=== PATIENT | female | born 1970 | race Caucasian/White ===

== ENCOUNTER → 2021-07-09 17:51 | Outpatient (CLI) | payer OTHER, SELFPAY ==
--- NOTE | 2021-07-09 18:00 | DI.MRI.S_ITS ---
PROCEDURE: MR HIP RT WO CON INDICATIONS: Stress Fracture TECHNIQUE: Noncontrast coronal T1 spin echo and STIR through the bony pelvis. Coronal and axial T2 fast spin echo with fat saturation, sagittal T1 spin echo, and oblique axial T2 fast spin echo with fat saturation through the hip. COMPARISON: None. FINDINGS: Image quality: Excellent. Bones and joints: There is a nondisplaced subcapital fracture of the right femoral neck. It extends to the cortex anteriorly, posteriorly, medially, and laterally. There is extensive bony edema related to the fracture. The femoral head appears intact. No dislocation. No other fractures or dislocations seen. Soft tissues: Unremarkable IMPRESSION: Nondisplaced subcapital fracture of the right femoral neck. Extensive associated bone marrow edema. Comment: This study was obtained after hours. I spoke to the patient directly, and suggested either nonweightbearing until discussing options with the patient's referring orthopedic surgeon versus potential hospital admission. The patient felt that she would be better off if she was evaluated in the emergency department, and a decision could be made at that time. I subsequently discussed the patient with Dr. Erwin. The patient will be transferred to the emergency department. Dictated by: Sage Riggins M.D. on 07/09/2021 at 18:46 Approved by: Sage Riggins M.D. on 07/09/2021 at 18:51
== END ==
PROVIDERS: PCP Internal Medicine; Referring Provider Orthopaedic Surgery; Visit Provider Orthopaedic Surgery
DX: S72.011A Unspecified intracapsular fracture of right femur, initial encounter for closed fracture (principal); X58.XXXA Exposure to other specified factors, initial encounter
CPT/HCPCS: 73721

== ENCOUNTER 2021-07-09 18:48 | Emergency (ER) | payer OTHER, SELFPAY ==
[2021-07-09 19:00] VITALS: BP 161/97; PULSE 85; RESP 14; TEMP 36.8; O2SAT 96; BMI 21.7
--- NOTE | 2021-07-09 19:11 | ED_ITS ---
HPI - Fall General Chief Complaint: Extremity Injury, Lower Stated Complaint: Fracture Time Seen by Provider: 07/09/21 19:10 Source: patient Mode of arrival: Ambulatory Limitations: no limitations History of Present Illness HPI Narrative: This patient fell while vacationing in [place] about 7 weeks ago. She injured her right hip. Initial x-rays were interpreted as normal. She has been on crutches until recently. Her local PCM felt she was fine. When coming off the crutches she developed increasing pain once again. CT done recently at [facility] was suggestive of a fracture, but not diagnostic. Dr. Zarco, the local orthopedic surgeon became involved, he thought the CT was suggestive of a fracture. He ordered an MRI which was done at this facility prior to her arrival here. She is here due to the positive MRI findings for hip fracture. She is ambulatory, with pain. She has no lower back pain. She has no numbness or weakness in the lower extremities. Review of Systems Constitutional Constitutional: Denies frequent falls Comments: No other recent injuries. Musculoskeletal Comments: No back pain. Right hip pain. No leg shortening. Integumentary/Breasts Skin/Breast: Denies lesions and Denies rash Neurologic Neurologic: Denies frequent falls Comments: No lower extremity numbness or weakness. Hematologic/Lymphatic On Anticoagulants: No Patient History Medical History (Updated 07/09/21 @ 21:43 by Ke Orozco MD) No significant past medical history Surgical History (Updated 07/09/21 @ 21:43 by Ke Orozco MD) No significant past surgical history Exam Initial Vital Signs Initial Vital Signs: Vital Signs Temperature 98.2 F 07/09/21 19:00 Pulse Rate 85 07/09/21 19:00 Respiratory Rate 14 07/09/21 19:00 Blood Pressure 161/97 H 07/09/21 19:00 Pulse Oximetry 96 07/09/21 19:00 Const General: cooperative, healthy appearing, comfortable, well developed and well g roomed GI Inspection: normal to inspection Palpation: soft and No tender Back/Spine/Pelvis Back: No back tenderness Skin General: no rashes or lesions noted Neuro General: patient alert, patient awake, patient oriented x3 and no focal motor deficits Extrem Other: Right hip tenderness, no deformity. Pain is exacerbated by motion of the right hip. There is no leg shortening. No rotation deformity. The right leg is otherwise intact. There is no edema or calf tenderness on either side. Course Course Course Narrative: The case was discussed with the orthopedic surgeon who ordered the MRI on her hip. She is discharged on crutches and Vicodin for pain. Dr. Zarco thinks he can take her to the OR tomorrow. Orders Ordered: Discontinued Medications Hydrocodone Bitart/Acetaminophen (Hydrocodone/Acet 5/325 Prepack) 1 bottle MISC SEEINSTR ONE Stop: 07/09/21 19:34 Last Admin: 07/09/21 19:40 Dose: 1 bottle Documented by: NAZ Vital Signs Vital signs: Vital Signs - 8 hr 07/09/21 19:00 Temperature 98.2 F Pulse Rate 85 Respiratory Rate 14 Blood Pressure 161/97 H Pulse Oximetry 96 MDM - Fall Imaging Data Right hip MRI:: Radiologist's Impression: Nondisplaced subcapital fracture of the right femoral neck.? Extensive associated bone marrow edema. Discharge Plan Departure Patient Disposition: Home Clinical Impression: Closed subcapital fracture of neck of right femur Instructions: Hip Fracture Activity Restrictions/Additional Instructions: Use crutches when up and about. Nothing to eat or drink after midnight. [place] every 4-6 hours as needed for pain. Call Dr. Zarco's office tomorrow at 8:00 a.m. for further instruction. You may have surgery tomorrow afternoon. Return here as needed. Referrals: Ezekiel Zarco MD [Non-Staff] - Leonel Chiang MD [Primary Care Provider] -
[2021-07-09] MEDS: HYDROCODONE/ACET 5/325 PREPACK 1 BOTTLE MISC (19:40)
== END 2021-07-09 19:51 | disposition home or self-care (01) ==
PROVIDERS: Emergency Provider Emergency Medicine; PCP Internal Medicine
DX: S72.011A Unspecified intracapsular fracture of right femur, initial encounter for closed fracture (principal); X58.XXXA Exposure to other specified factors, initial encounter
CPT/HCPCS: 73721; 99281; 99283

== ENCOUNTER 2021-12-20 15:05 | Emergency (ER) | payer OTHER, SELFPAY ==
[2021-12-20 15:55] VITALS: BP 137/77; PULSE 50; RESP 19; TEMP 37; O2SAT 95; BMI 23.0
--- NOTE | 2021-12-20 16:26 | DI.RAD.S_ITS ---
PROCEDURE: XR KNEE RT 3V INDICATIONS: knee pain TECHNIQUE: 3 views of the knee were acquired. COMPARISON: None. FINDINGS: Bones: No fractures or dislocations. No suspicious bony lesions. Soft tissues: No joint effusion. No suspicious soft tissue calcifications. IMPRESSION: No acute osseous abnormalities. If clinical symptoms persist or clinical suspicion for pathology is high, a repeat examination in 7-10 days, or advanced imaging such as CT or MRI is suggested for further evaluation. Dictated by: Mart Cervantes M.D. on 12/20/2021 at 17:20 Approved by: Mart Cervantes M.D. on 12/20/2021 at 17:22
--- NOTE | 2021-12-20 16:29 | ED.EXTPRO ---
HPI - Extremity Problem General Chief complaint: Extremity Problem,Nontraumatic Stated complaint: Hip fracture surgery in july, Worsening pain Time Seen by Provider: 12/20/21 16:14 Source: patient Mode of arrival: Family Vehicle History of Present Illness HPI Narrative: Patient is a 51-year-old female. Earlier this year she was diagnosed with a right hip fracture. Had pins placed in July this year. She states that afterwards she was doing well. She was walking until 1 month ago when she started to have pain in her right hip and then pain in her right knee. She reports no new injuries. States that it is worse when she stands on it and also when she is sitting and standing from sitting. She went to go see her orthopedic doctor 2 days ago. Had an injection. There was some question is whether not it was the hardware causing the discomfort. She had x-rays performed. She stated that the x-rays were unremarkable. She continued to have discomfort. She contacted her orthopedic doctor's office who told her to come to the emergency department. Related Data Previous Rx's Medication Instructions Recorded hydrocodone 5 mg-acetaminophen 325 1 tab PO Q8H PRN pain #10 tabs 12/20/21 mg tablet Review of Systems Constitutional Constitutional: Denies fever(s) Musculoskeletal Musculoskeletal: Reports system reviewed and no additional complaints, except as documented Integumentary/Breasts Skin/Breast: Reports system reviewed and no additional complaints, except as documented Neurologic Neurologic: Reports system reviewed and no additional complaints, except as documented Hematologic/Lymphatic On Anticoagulants: No Patient History Medical History No significant past medical history Surgical History (Updated 07/09/21 @ 21:43 by Ke Orozco MD) No significant past surgical history Social History Smoking Status: Former smoker Smoking Status: Former smoker tobacco type: cigarettes alcohol intake frequency: 0-2 drinks per day Substance Use Type: marijuana Exam Initial Vital Signs Initial Vital Signs: Vital Signs Temperature 98.6 F 12/20/21 15:55 Pulse Rate 50 L 12/20/21 15:55 Respiratory Rate 19 12/20/21 15:55 Blood Pressure 137/77 12/20/21 15:55 Pulse Oximetry 95 12/20/21 15:55 Oxygen Delivery Method 12/20/21 15:55 Const General: cooperative and healthy appearing [facility] Head: normal to inspection Resp Effort & Inspection: normal respiratory effort Cardio Rate: regular rate Skin Other: Healed surgical scar as lateral upper thigh. No signs of infection. Neuro Sensory Exam: no sensory deficits noted Extrem Other: Patient does have some tenderness along the lateral hamstring. Mild tenderness along the ITB band. Causes discomfort deep inside with flexion of the hip and flexion extension of the knee. Course Orders Ordered: ED Orders 12/20/21 16:26 XR knee RT 3V Stat Discontinued Medications Hydromorphone HCl (Hydromorphone 0.5 Mg Inj) 0.5 mg IV NOW ONE Stop: 12/20/21 17:43 Vital Signs Vital signs: Vital Signs - 8 hr 12/20/21 15:55 12/20/21 16:49 Temperature 98.6 F Pulse Rate 50 L 52 L Respiratory Rate 19 18 Blood Pressure 137/77 130/70 Pulse Oximetry 95 98 Oxygen Delivery Method Room Air MDM - Extremity (Nontraumatic) Imaging Data Extremity x-ray #1: Radiologist's Impression: [id number] [id number] XRay Report Signed Patient: ROSA MARIA ARORA MR#: [id number] : 1970 Acct:[id number] Age/Sex: 51 / F Date of Service: 12/20/21 Loc: ED Accession Number: [id number] ?? Procedure: XR knee RT 3V Ordering Provider: David Madden D.O. PROCEDURE:? XR KNEE RT 3V ? INDICATIONS:? knee pain ? TECHNIQUE:? 3 views of the knee were acquired.? ? COMPARISON:? None. ? FINDINGS:? ? Bones:? No fractures or dislocations.? No suspicious bony lesions.? ? Soft tissues:? No joint effusion.? No suspicious soft tissue calcifications.? ? ? IMPRESSION:? No acute osseous abnormalities.? If clinical symptoms persist or clinical suspicion for pathology is high, a repeat examination in 7-10 days, or advanced imaging such as CT or MRI is suggested for further evaluation. ? ? Dictated by: Mart Cervantes M.D. on 12/20/2021 at 17:20 ? ? Approved by: Mart Cervantes M.D. on 12/20/2021 at 17:22 Discharge Plan Departure Patient Disposition: Home Clinical Impression: Leg pain, right Activity Restrictions/Additional Instructions: I recommend that you keep your follow-up appointment with the orthopedic surgeon on Thursday. The x-rays today shows no new signs of any fractures. Also low suspicion for any infections. Take the medication as directed. Return to the emergency department for any new or worsening symptoms. Prescriptions: New hydrocodone-acetaminophen 5-325 mg tablet 1 tab PO Q8H PRN (Reason: pain) Qty: 10 0RF Referrals: Leonel Chiang MD [Primary Care Provider] -
[2021-12-20 16:49] VITALS: BP 130/70; PULSE 52; RESP 18; O2SAT 98
[2021-12-20] MEDS: HYDROMORPHONE 1 MG INJ 0.5 MG IM (17:47)
[2021-12-20 17:51] VITALS: BP 140/92; PULSE 46; RESP 18; O2SAT 98
== END 2021-12-20 17:51 | disposition home or self-care (01) ==
PROVIDERS: Emergency Provider Emergency Medicine; PCP Internal Medicine
DX: M25.551 Pain in right hip (principal); M25.561 Pain in right knee
CPT/HCPCS: 73562; 96372; 99283; J1170

== ENCOUNTER 2021-12-28 14:08 | Emergency (ER) | payer OTHER, SELFPAY ==
--- NOTE | 2021-12-28 14:52 | DI.RAD.S_ITS ---
PROCEDURE: XR HIP W PEL IF DONE RT 2V INDICATIONS: fall/pain TECHNIQUE: AP pelvis with lateral view(s) of the right hip(s). COMPARISON: [facility], MR, MR HIP RT WO CON, 07/09/2021, 18:03. FINDINGS: Bones: No fractures or dislocations. Prior right hip pinning can be seen. Pelvic ring appears intact. No suspicious bony lesions. Age-appropriate lower lumbar spine degenerative changes are noted. Soft tissues: The visualized bowel gas pattern is normal. No suspicious soft tissue calcifications. Pelvic phleboliths are incidentally noted. IMPRESSION: No acute fracture can be seen on these plain films. If there is point tenderness (or other clinical suspicion for a fracture not seen on these images) then a dedicated CT could be considered for further evaluation, if clinically appropriate. Prior right femoral neck pinning. Dictated by: Alonso Kennedy M.D. on 12/28/2021 at 14:50 Approved by: Alonso Kennedy M.D. on 12/28/2021 at 14:51
[2021-12-28 14:57] VITALS: BP 127/61; PULSE 44; RESP 18; TEMP 36.5; O2SAT 99; BMI 21.1
--- NOTE | 2021-12-28 15:46 | DI.RAD.S_ITS ---
PROCEDURE: XR LUMBAR SPINE 2-3V INDICATIONS: fall, lumbar pain TECHNIQUE: 3 views of the lumbar spine were acquired. COMPARISON: [facility], CR, XR HIP W PEL IF DONE RT 2V, 12/28/2021, 15:01. FINDINGS: Bones: 5 [id number] vertebrae are present. There is minimal to mild levoconvex scoliotic curvature. Minimal retrolisthesis is seen at L3-L4. No vertebral body compression fractures. No suspicious bony lesions. There is been removal of portions of the posterior elements within the superior to mid lumbar spine. There is moderate disc space narrowing at L3-L4, with associated endplate irregularity and sclerosis. Soft tissues: Overlying bowel gas pattern is normal. No suspicious soft tissue calcifications. Cholecystectomy clips are seen. Pelvic phleboliths are incidentally noted. IMPRESSION: No acute fracture can be seen on these plain films. Prior postoperative changes, with removal of portions of the posterior elements. Focal L3-L4 degenerative change. Dictated by: Alonso Kennedy M.D. on 12/28/2021 at 15:31 Approved by: Alonso Kennedy M.D. on 12/28/2021 at 15:32
[2021-12-28] MEDS: KETOROLAC 30 MG/ML VIAL IM (16:22)
--- NOTE | 2021-12-28 17:02 | ED.LOWEXIN ---
HPI - Extremity Injury (Lower) General Chief Complaint: Extremity Injury, Lower Stated Complaint: intense pain lower back and hip Time Seen by Provider: 12/28/21 15:40 Source: patient Mode of arrival: Family Vehicle History of Present Illness HPI Narrative: 51-year-old woman with history of a right hip fracture previously was leaning over in her bedroom slipped and fell landing on her right hip approximately 36 hours ago. She was able to get up and has been able to bear weight but is having increasing pain in the right hip as well as paraspinous area on the right side. She is now noting that perhaps there may be some slight paresthesia over the anterior surface of her thigh. She has been taking Percocet and ibuprofen and is continuing to have a significant amount of pain. She is not having any weakness and she describes no abdominal pain, vomiting, diarrhea, chest pain, coughing, palpitations. Related Data Previous Rx's Medication Instructions Recorded hydrocodone 5 mg-acetaminophen 325 1 tab PO Q8H PRN pain #10 tabs 12/20/21 mg tablet oxycodone-acetaminophen 5 mg-325 1 tab PO Q6H PRN pain #14 tabs 12/28/21 mg tablet Allergies Allergy/AdvReac Type Severity Reaction Status Date / Time morphine Allergy Verified 12/28/21 14:56 plastic tape Allergy Rash Uncoded 12/28/21 14:56 Review of Systems Review of Systems Narrative: Remainder of complete review of systems is otherwise unremarkable except for that included in the HPI. Patient History Medical History No significant past medical history Surgical History No significant past surgical history Social History Smoking Status: Former smoker Smoking Status: Former smoker tobacco type: cigarettes alcohol intake frequency: 0-2 drinks per day Substance Use Type: marijuana Exam Initial Vital Signs Initial Vital Signs: Vital Signs Temperature 97.7 F 12/28/21 14:57 Pulse Rate 44 L 12/28/21 14:57 Respiratory Rate 18 12/28/21 14:57 Blood Pressure 127/61 12/28/21 14:57 Pulse Oximetry 99 12/28/21 14:57 Oxygen Delivery Method 12/28/21 14:57 General: Alert appropriate in no acute distress Respiratory: Able to speak in full sentences, no obvious respiratory distress Skin: No obvious rashes, warm and dry Spine: Large well-healed scar from multilevel laminectomy. She does have some paraspinous spasm close to L3-L4 but no midline tenderness. Extremities: She is tender over the greater trochanter without significant contusions or abrasion. She is neurovascularly intact distally Neurologic: Grossly intact no obvious asymmetries or abnormalities Psych: appropriate insight and affect, cooperative Course Orders Ordered: ED Orders 12/28/21 14:52 XR hip w pel if done RT 2V Stat 12/28/21 15:46 XR lumbar spine 2-3V Stat Discontinued Medications Ketorolac Tromethamine (Ketorolac 30 Mg/Ml Vial) 30 mg IM NOW ONE Stop: 12/28/21 15:47 Last Admin: 12/28/21 16:22 Dose: 30 mg Documented By: BT Vital Signs Vital signs: Vital Signs - 8 hr 12/28/21 14:57 Temperature 97.7 F Pulse Rate 44 L Respiratory Rate 18 Blood Pressure 127/61 Pulse Oximetry 99 Oxygen Delivery Method Room Air MDM - Extremity Injury (Lower) Imaging Data XR hip: Radiologist's Impression: FINDINGS:? ? Bones:? No fractures or dislocations.? Prior right hip pinning can be seen.? Pelvic ring appears intact.? No suspicious bony lesions.? ? Age-appropriate lower lumbar spine degenerative changes are noted. ? Soft tissues:? The visualized bowel gas pattern is normal.? No suspicious soft tissue calcifications.? Pelvic phleboliths are incidentally noted.? ? ? IMPRESSION:? No acute fracture can be seen on these plain films. ? If there is point tenderness (or other clinical suspicion for a fracture not seen on these images) then a dedicated CT could be considered for further evaluation, if clinically appropriate. ? Prior right femoral neck pinning. ? Dictated by: Alonso Kennedy M.D. on 12/28/2021 at 14:50 ? ? XR lumbar spine: Radiologist's Impression: FINDINGS:? ? Bones:? 5 [id number] vertebrae are present.? There is minimal to mild levoconvex scoliotic curvature.? Minimal retrolisthesis is seen at L3-L4.? No vertebral body compression fractures.? No suspicious bony lesions.? ? There is been removal of portions of the posterior elements within the superior to mid lumbar spine. ? There is moderate disc space narrowing at L3-L4, with associated endplate irregularity and sclerosis. ? Soft tissues:? Overlying bowel gas pattern is normal.? No suspicious soft tissue calcifications.? Cholecystectomy clips are seen.? Pelvic phleboliths are incidentally noted.? ? ? IMPRESSION:? No acute fracture can be seen on these plain films. ? Prior postoperative changes, with removal of portions of the posterior elements. ? Focal L3-L4 degenerative change. ? ? Dictated by: Alonso Kennedy M.D. on 12/28/2021 at 15:31 ? ? MDM Narrative Medical decision making narrative: 51-year-old woman with mechanical fall and pain in the right hip and low back both of which have been previous surgical sites. Pain is worsening at 36 hours and she is concerned. X-rays are reassuring with no hardware abnormalities or acute fractures. Reassurance is given. Will have her continue with ibuprofen and Percocet as needed for pain control with gentle mobilization as soon as she is able to do so in follow-up with her primary care doctor as needed. Discharge Plan Departure Patient Disposition: Home Clinical Impression: Lumbar spine pain Fall Qualifiers: Encounter type: initial encounter Qualified Code(s): W19.XXXA - Unspecified fall, initial encounter Contusion of hip, right Qualifiers: Encounter type: initial encounter Qualified Code(s): S70.01XA - Contusion of right hip, initial encounter Instructions: DI for Contusion Activity Restrictions/Additional Instructions: Thank you for coming in today Your x-rays are reassuring of both your hip and your lumbar spine. There is no new fractures, no compression fractures and no fractures around the hardware at either site. 48 hours after a fall is typically when the pain reaches its peak. Using 400 mg of ibuprofen (2 [id number] pills) and 1 Tylenol every 6 hours can be very helpful in controlling pain. For severe pain using 400 mg of ibuprofen and 1 Percocet will be helpful. It is appropriate to stay as active as you can, gentle early mobilization does help with pain after a fall such as this. If you find that you are getting worse or develop any new symptoms, please feel free to return to the emergency department for further evaluation. Prescriptions: New oxycodone-acetaminophen 5-325 mg tablet 1 tab PO Q6H PRN (Reason: pain) Qty: 14 0RF No Action hydrocodone-acetaminophen 5-325 mg tablet 1 tab PO Q8H PRN (Reason: pain) Qty: 10 0RF Referrals: Leonel Chiang MD [Primary Care Provider] -
--- NOTE | 2022-01-01 17:23 | PC.NURSE ---
Faxed recent ED report to [facility] for pt continuity to fax [phone].
== END 2021-12-28 17:37 | disposition home or self-care (01) ==
PROVIDERS: Emergency Provider Emergency Medicine; PCP Internal Medicine
DX: S70.01XA Contusion of right hip, initial encounter (principal); M54.50 Low back pain, unspecified; W19.XXXA Unspecified fall, initial encounter
CPT/HCPCS: 72100; 73502; 96372; 99283; J1885

== ENCOUNTER → 2022-01-06 09:24 | Outpatient (CLI) | payer OTHER, SELFPAY ==
--- NOTE | 2022-01-06 | DI.NM.S_ITS ---
PROCEDURE: NM BONE 3 PHASE RADIOPHARMACEUTICAL: 21.6 mCi Tc-99m MDP IV. INDICATIONS: Stress fracture, right femur TECHNIQUE: Multiple bone scintigrams were obtained after intravenous injection of Tc-99m MDP, including flow, blood pool, and delayed images centered to the region of interest. COMPARISON: [facility], CR, XR HIP W PEL IF DONE RT 2V, 12/28/2021, 15:01. FINDINGS: There is symmetric flow and blood pool. On delayed images, mildly asymmetrically increased radiotracer uptake is seen in the proximal right femur, involving the head and neck. Normal radiotracer excretion is seen in the bladder. IMPRESSION: Mildly asymmetrically increased delayed radiotracer uptake on delayed images in the right femoral head and neck. This could be due to postsurgical changes or further injury. Correlate with clinical context and consider correlation with cross-sectional imaging if needed. Dictated by: Wale Cohen M.D. on 01/06/2022 at 14:22 Approved by: Wale Cohen M.D. on 01/06/2022 at 14:25
== END ==
PROVIDERS: PCP Internal Medicine; Referring Provider Orthopaedic Surgery; Visit Provider Orthopaedic Surgery
DX: M84.351D Stress fracture, right femur, subsequent encounter for fracture with routine healing (principal)
CPT/HCPCS: 78315; A9503

== ENCOUNTER → 2022-04-10 13:18 | Outpatient (CLI) | payer OTHER, SELFPAY ==
--- NOTE | 2022-04-10 | DI.CT.S_ITS ---
PROCEDURE: CT HIP RIGHT WITHOUT CON INDICATIONS: RIGHT FEMUR FRACTURE TECHNIQUE: Noncontrast 3 mm axial sections acquired through the bony pelvis. Additional 2 mm axial sections acquired through the symptomatic hip joint, with coronal and sagittal reformats. COMPARISON: [facility], MR, MR HIP RT WO CON, 07/09/2021, 18:03. [facility], CR, XR PELVIS WITH LATERAL HIP RIGHT, 03/19/2022, 15:56. [facility], CR, XR HIP W PEL IF DONE RT 2V, 12/28/2021, 15:01. [facility], NM, NM BONE 3 PHASE, 01/06/2022, 9:41. FINDINGS: Image quality: Diagnostic. Significant beam hardening artifacts from right hip surgical hardware are seen.. Bones: There is prior surgical pinning of right femoral neck with [address]. Right hip alignment is anatomic. Surgical hardware are in their expected location without evidence of gross hardware loosening or failure. Patient's known nondisplaced fracture through capital has healed. There is subtle cortical irregularity involving posterior cortex of right proximal femur near the level of greater trochanter with fairly corticated margin best seen on series 4 image 56, series 8 image 39, series 9, image 53. Cortical irregularity also noted involving anterior cortex of right femoral neck best seen on series 4, image 43, series 8, image 23 and series 4, image 43 with fairly well corticated margin. Finding may represent a subacute to healed intertrochanteric fracture. No evidence of acute fracture is identified. No suspicious bony lesion is seen. Changes mild to moderate right hip joint osteoarthritic changes are seen. No evidence of avascular necrosis of femoral head. Soft tissues: No significant right hip joint effusion. No abnormal soft tissue calcifications. No gross full-thickness muscle or tendon rupture. No abnormal intramuscular hematoma or soft tissue fluid collection. No soft tissue mass is seen. No pelvic free fluid or free air. IMPRESSION: 1. Interval healed right subcapital femoral neck fracture with prior surgical pinning. No evidence of hardware loosening or failure. 2. Questionable subtle cortical irregularity involving right femoral neck near intertrochanteric region of right femoral neck concerning for subacute or healed nondisplaced intertrochanteric fracture versus areas of nutrient vessels. No acute appearing cortical disruption or periosteal reaction is noted to suggest acute fracture. No dislocation. 3. Right hip joint osteoarthritis. No evidence of avascular necrosis of femoral head. 4. No gross pelvic or right hip soft tissue abnormalities. Dictated by: Scott Emmanuel M.D. on 04/10/2022 at 20:58 Approved by: Scott Emmanuel M.D. on 04/10/2022 at 21:17
== END ==
PROVIDERS: PCP Internal Medicine; Referring Provider Orthopaedic Surgery; Visit Provider Orthopaedic Surgery
DX: S72.001K Fracture of unspecified part of neck of right femur, subsequent encounter for closed fracture with nonunion (principal); M16.11 Unilateral primary osteoarthritis, right hip
CPT/HCPCS: 73700

== ENCOUNTER → 2022-05-28 10:19 | Outpatient (CLI) | payer OTHER, SELFPAY ==
[2022-05-28 11:07] LABS: Add Manual Diff / Slide Review NO; Basophils Absolute Auto 0 /uL (0-100); Basophils Percent Auto 1.1 % (0-2); Eosinophils Absolute Auto 100 /uL (0-450); Eosinophils Percent Auto 1.9 % (2-4); Hematocrit 37.8 % (36-46); Hemoglobin 12.8 g/dL (12.0-16.0); Lymphocytes Absolute Auto 1800 /uL (1100-4500); Lymphocytes Percent Auto 38.9 % (25-40); Mean Corpuscular HGB Conc 33.9 % (30-36); Mean Corpuscular Hemoglobin 31.9 PG (26-34); Mean Corpuscular Volume 93.9 fL (80-100); Monocytes Absolute Auto 300 /uL (0-900); Monocytes Percent Auto 6.7 % (3-14); Neutrophils Absolute Auto 2400 /uL (1500-7000); Neutrophils Percent Auto 51.4 % (50-75); Platelet Count 259 X10^3/uL (150-400); Red Blood Cell Count 4.02 X10^6/uL (4.0-5.2); Red Cell Distribution Width 12.8 % (11.6-14.8); White Blood Cell Count 4.6 X10^3/uL (4.5-11.0)
[2022-05-28 11:31] LABS: Erythrocyte Sedimentation Rate 7 MM/HR (0-20)
[2022-05-28 11:51] LABS: BUN Creatinine Ratio 25.4 (6-22); Blood Urea Nitrogen 16 mg/dL (7-17); Calcium 9.1 mg/dL (8.4-10.2); Carbon Dioxide 28 mmol/L (22-32); Chloride 103 mmol/L (98-107); Estimated Glomerular Filt Rate > 60 mL/min (>60); Glucose 83 mg/dL (70-100); HEMOLYSIS < 15 (0-50); Potassium 4.4 mmol/L (3.4-5.1); Sodium 139 mmol/L (137-145)
== END ==
PROVIDERS: PCP Internal Medicine; Referring Provider Orthopaedic Surgery; Visit Provider Orthopaedic Surgery
DX: Z01.812 Encounter for preprocedural laboratory examination (principal)
CPT/HCPCS: 36415; 80048; 85025; 85651